=== PATIENT | male | born 1995 | race Caucasian/White ===

== ENCOUNTER 2021-06-18 20:25 | Emergency (ER) | payer OTHER ==
[2021-06-18 21:35] LABS: Hemoglobin 12.7 g/dL (13.5-17.5); Mean Corpuscular HGB CONC 33.2 g/dL (32.0-36.0); Mean Corpuscular Volume 93.2 fl (81.2-95.1); RBC Distribution Width 13.4 % (11.5-14.5); White Blood Cell (WBC) Count 2.8 10x3/uL (3.5-10.5)
[2021-06-18 21:39] LABS: ALT (SGPT) 308 U/L (8-55); AST (SGOT) 291 U/L (5-34); Albumin 3.5 g/dL (3.5-5.0); Alkaline Phosphatase 252 U/L (40-110); Anion Gap 12 mmol/L (10-20); BUN (Urea Nitrogen) 8 mg/dL (8.9-20.6); Bilirubin, Total 3.6 mg/dL (0.2-1.2); Calc. Creatinine Clearance 0 mL/min (70-130); Calcium 9.2 mg/dL (7.8-10.44); Carbon Dioxide 24 mmol/L (22-29); Chloride 106 mmol/L (98-107); Glucose 90 mg/dL (70-105); Potassium 3.9 mmol/L (3.5-5.1); Protein, Total 7.5 g/dL (6.0-8.3); Sodium 138 mmol/L (136-145)
[2021-06-18 22:00] LABS: #Eosinphils 0.1 10x3/uL (0.0-0.5); #Monocytes 0.3 10x3/uL (0.0-1.1); %Basophils 1.1 % (0.0-2.0); %Eosinophils 4.4 % (0.0-6.0); %Lymphocytes 25.1 % (18.0-47.0); %Monocytes 9.5 % (0.0-10.0); Platelet Count 57 10x3/uL (150-450)
[2021-06-18 22:03] LABS: #Neutrophils 1.7 10x3/uL (1.5-8.4); %Neutrophils 59.9 % (40.0-75.0)
[2021-06-19 05:59] LABS: HBCM Index 0.09 S/CO (0-0.79); HBSAg Index 0.24 S/CO (0-0.99); Hep A IgM AB Non-Reactive (NonReactive); Hep A IgM S/CO 0.14 S/CO (0-0.79); Hep B Surf Ag Non-Reactive S/CO (NonReactive); Hep C IgG Ab Non-Reactive (NonReactive); Hep C Index 0.17 S/CO (0-0.79); Hepatitis B Core IgM Abs Non-Reactive (NonReactive)
== END 2021-06-18 23:32 | disposition home or self-care (01) ==
LOC: CSHERS 20:25
DX: B17.9 Acute viral hepatitis, unspecified (principal); R74.01 Elevation of levels of liver transaminase levels
CPT/HCPCS: 36415; 71045; 76705; 80053; 80074; 85025; 93005